=== PATIENT | female | born 1965 | race Caucasian/White ===

== ENCOUNTER 2016-12-14 12:46 | Emergency (ER) | payer MEDICAID ==
[2016-12-14 12:58] VITALS: BMI 25.9
[2016-12-14 13:01] VITALS: RESP 18; TEMP 97.6
[2016-12-14] MEDS ORDERED: Sodium Chloride 0.9% 1,000 ML IV ONE ×2 (13:57→15:09)
--- NOTE | 2016-12-14 14:02 | C.PDOC ---
History Of Present Illness 51 y/o female pmhx diabetes presents to the ED with complains of hyperglycemia. Pt states she was sitting and felt suddenly dizzy so she called EMS. Pt also reports headache and fever yesterday. Pt took medications today, has not eaten food. Denies vomiting, diarrhea, abdominal pain or any other complaints. Time Seen by Provider: 12/14/16 13:19 Chief Complaint (Nursing): High Blood Sugar History Per: Patient History/Exam Limitations: no limitations Onset/Duration Of Symptoms: Hrs Current Symptoms Are (Timing): Still Present Severity: Moderate Causative (Exacerbating) Factor(s): Missed A Meal Recent travel outside of the [place]: No Past Medical History Reviewed: Historical Data, Nursing Documentation, Vital Signs Vital Signs: Last Vital Signs Temp 97.6 F 12/14/16 12:54 Pulse 86 12/14/16 16:46 Resp 18 12/14/16 16:46 BP 121/80 12/14/16 16:46 Pulse Ox 96 12/14/16 16:47 - Medical History PMH: Asthma, Depression, Diabetes, HTN, Hypercholesterolemia Family History: States: Unknown Family Hx - Social History Hx Tobacco Use: No Hx Alcohol Use: No Hx Substance Use: No - Immunization History Hx Tetanus Toxoid Vaccination: Yes Hx Influenza Vaccination: Yes Hx Pneumococcal Vaccination: Yes Review Of Systems Except As Marked, All Systems Reviewed And Found Negative. Constitutional: Negative for: Fever Cardiovascular: Negative for: Chest Pain Respiratory: Negative for: Shortness of Breath Gastrointestinal: Negative for: Vomiting Neurological: Positive for: Headache, Dizziness. Negative for: Weakness, Numbness Physical Exam - Physical Exam Appears: Non-toxic, No Acute Distress Skin: Warm, Dry, No Rash Head: Atraumatic, Normacephalic Eye(s): bilateral: Normal Inspection, PERRL, EOMI Oral Mucosa: Moist Neck: Normal, Normal ROM, Supple Chest: Symmetrical Cardiovascular: Rhythm Regular, No Friction Rub, No Murmur Respiratory: Normal Breath Sounds, No Rales, No Rhonchi, No Wheezing Gastrointestinal/Abdominal: Normal Exam, Soft, No Tenderness Back: Normal Inspection, No CVA Tenderness Extremity: No Tenderness, No Swelling Extremity: Bilateral: Atraumatic Neurological/Psych: Oriented x3, Normal Speech, Normal Motor, Normal Sensation Gait: Steady ED Course And Treatment - Laboratory Results Result Diagrams: 12/14/16 14:17 12/14/16 14:17 O2 Sat by Pulse Oximetry: 96 (room air) Pulse Ox Interpretation: Normal Medical Decision Making Medical Decision Making: Plan: labs, UA, IV fluids On re-exam, the patient reports improvement of symptoms. Lungs are CTA, heart is RRR, abdomen is soft, non-tender and patient is tolerating PO well. Patient is ambulatory in the ED with steady gait. Follow up with the medical doctor within 1-2 days, Return if worsened. Disposition - Disposition Referrals: Matty Agarwal MD [Staff Provider] - Disposition: HOME/ ROUTINE Disposition Time: 16:45 Condition: GOOD Additional Instructions: Follow up with the medical doctor within 1-2 days without fail for medication review and possible change, Return if worsened. Instructions: Diabetic Hyperglycemia (ED) - Clinical Impression Clinical Impression: Hyperglycemia - PA / DESIGNER WRITER / Resident Statement MD/DO has reviewed & agrees with the documentation as recorded. - Scribe Statement The provider has reviewed the documentation as recorded by the Jes Dyer All medical record entries made by the Jes were at my direction and personally dictated by me. I have reviewed the chart and agree that the record accurately reflects my personal performance of the history, physical exam, medical decision making, and the department course for this patient. I have also personally directed, reviewed, and agree with the discharge instructions and disposition.
[2016-12-14 14:23] LABS: BASO % 0.4 % (0.0-2.0); EOS # 0.2 K/uL (0.0-0.7); EOS % 1.7 % (0.0-4.0); HEMATOCRIT 36.9 % (34.0-47.0); LYMPH # 2.8 K/uL (1.0-4.3); LYMPH % 30.3 % (20.0-40.0); MEAN CELL VOLUME 83.6 fL (81.0-99.0); MEAN CORPUSCULAR HEMOGLOBIN 28.4 pg (27.0-31.0); MEAN PLATELET VOLUME 10.7 fL (7.2-11.7); MONO # 0.6 K/uL (0.0-0.8); MONO % 6.6 % (0.0-10.0); RED CELL DISTRIBUTION WIDTH 13.7 % (11.5-14.5); WHITE BLOOD COUNT 9.1 K/uL (4.8-10.8)
[2016-12-14 14:27] LABS: RBC URINE < 1 /hpf (0-3); URINE BILIRUBIN NEGATIVE (NEGATIVE); URINE BLOOD NEGATIVE (NEGATIVE); URINE COLOR Yellow (YELLOW); URINE GLUCOSE (UA) 3+ mg/dL (Normal); URINE KETONE TRACE mg/dL (NEGATIVE); URINE LEUKOCYTE ESTERASE NEG Leu/uL (Negative); URINE PROTEIN NEGATIVE (NEGATIVE); URINE UROBILINOGEN NORMAL mg/dL (0.2-1.0); WBC URINE < 1 /hpf (0-5)
[2016-12-14 14:37] LABS: CHLORIDE 93 mmol/L (98-107)
[2016-12-14 14:38] LABS: POTASSIUM 4.4 mmol/L (3.6-5.2); SODIUM 132 mmol/L (132-148)
[2016-12-14 14:40] LABS: ALB/GLOB RATIO 1.1 (1.0-2.1); AST/SGOT 27 U/L (14-36); BILIRUBIN,TOTAL 0.6 mg/dL (0.2-1.3); CARBON DIOXIDE 25 mmol/L (22-30); GFR AFRICAN-AMERICAN > 60; TOTAL PROTEIN 8.4 g/dL (6.3-8.3)
[2016-12-14 14:41] LABS: ALKALINE PHOSPHATASE 71 U/L (38-126); ALT/SGPT 21 U/L (9-52); BLOOD UREA NITROGEN 16 mg/dL (7-17); CALCIUM 9.9 mg/dl (8.6-10.4); GLUCOSE,RANDOM 340 mg/dL (65-105)
[2016-12-14] MEDS ORDERED: Sodium Chloride 0.9% 1,000 ML ONE (15:13)
[2016-12-14 16:47] VITALS: BP 121/80; PULSE 86; O2SAT 96
== END 2016-12-14 17:07 | disposition home or self-care (01) ==
LOC: C.ER 12:46
DX: E11.65 Type 2 diabetes mellitus with hyperglycemia (principal)
CPT/HCPCS: 80053; 81001; 82009; 82948; 85025; 96360; 96361; 99284; J7040

== ENCOUNTER 2019-01-01 17:19 | Emergency (ER) | payer MEDICAID ==
[2019-01-01 17:19] VITALS: BMI 25.9
[2019-01-01 17:36] VITALS: O2SAT 98
[2019-01-01] MEDS ORDERED: Sodium Chloride 0.9% 1,000 ML IV ONE ×2 (17:47→17:48)
--- NOTE | 2019-01-01 17:51 | C.PDOC ---
History Of Present Illness PGY-[address] Morton/Samara Patient is 53 year old female with pmhx of DM, comes to the ED from PMD office for high glucose reading. Patient states she was feeling dizziness in the afternoon. Patient is not compliant with accuchecks and insulin at home, patient takes metformin 1000mg BID. PAtient denies any falls, LOC, head or body trauma, denies fever, chills, chest pain, shortness of breath, n/v/d/c. Admits to increase urination, admits to drink large amounts of water daily. no urinary symptoms reported. Chief Complaint (Nursing): High Blood Sugar History Per: Patient History/Exam Limitations: no limitations Onset/Duration Of Symptoms: Hrs Current Symptoms Are (Timing): Better Causative (Exacerbating) Factor(s): Missed Taking Medication. denies: Recent Steroids, Recent Change In Diet Associated Infectious Symptoms: Urinary Frequency (increased ). denies: Dysuria, Nausea, Vomiting, Diarrhea Treatment Prior To Provider Evaluation: Accucheck Past Medical History Vital Signs: Last Vital Signs Temp 97.5 F L 01/01/19 17:30 Pulse 111 H 01/01/19 17:30 Resp 20 01/01/19 17:30 BP 137/94 H 01/01/19 17:30 Pulse Ox 98 01/01/19 17:30 Primary Care Provider: Matty Agarwal - Medical History PMH: Asthma, Depression, Diabetes, HTN, Hypercholesterolemia Denies: Hepatitis, HIV, Seizures, Sexually Transmitted Disease Surgical History: No Surg Hx Family History: States: Unknown Family Hx - Social History Hx Tobacco Use: No Hx Alcohol Use: No Hx Substance Use: No - Immunization History Hx Tetanus Toxoid Vaccination: No Hx Influenza Vaccination: No Hx Pneumococcal Vaccination: No Review Of Systems Constitutional: Negative for: Fever, Chills, Weakness Cardiovascular: Positive for: Light Headedness. Negative for: Chest Pain Respiratory: Negative for: Shortness of Breath Gastrointestinal: Negative for: Nausea, Vomiting, Abdominal Pain, Diarrhea, Constipation Genitourinary: Positive for: Frequency. Negative for: Dysuria Neurological: Positive for: Dizziness. Negative for: Weakness, Numbness Psych: Negative for: Anxiety, Depression Physical Exam - Physical Exam Appears: Non-toxic, No Acute Distress Skin: Normal Color, Warm Head: Atraumatic, Normacephalic Eye(s): bilateral: Normal Inspection, EOMI Oral Mucosa: Moist Neck: Normal, Normal ROM Cardiovascular: Rhythm Regular Respiratory: Normal Breath Sounds, No Rales, No Rhonchi, No Wheezing Gastrointestinal/Abdominal: Normal Exam, Bowel Sounds, Soft Extremity: Normal ROM, No Tenderness, No Swelling Neurological/Psych: Oriented x3, Normal Speech, Normal Cognition, Normal Cranial Nerves, Normal Motor, Normal Sensation ED Course And Treatment - Laboratory Results Result Diagrams: 01/01/19 18:26 01/01/19 18:26 O2 Sat by Pulse Oximetry: 98 Medical Decision Making Medical Decision Making: Ordered CBC, CMP, Hemoglobin A1C 2L NS Insulin regular 6 Units x 1 accuchecks after 1L NS -[address] Pascual at 19:00 POC glucose after insulin and 2nd bolus of NS - 247 Patient stable to d/c. Patient is to be follow up with PMD Dr Vance, patient to continue her home meds and to check her glucose constantly and take insulin as indicated. Patient to return to ER if symptoms recur or worsen. Patient understand plan. Plan d/w Dr Morton/Samara Mack, PGY-1 Disposition - Disposition Referrals: Matty Agarwal MD [Staff Provider] - Disposition: HOME/ ROUTINE Disposition Time: 20:10 Condition: IMPROVED Additional Instructions: LAKSHMI TANG, thank you for letting us take care of you today. Your provider was Carito Morton MD and you were treated for HYPERGLYCEMIA. The emergency medical care you received today was directed at your acute symptoms. Return to the Emergency Department if your symptoms worsen, do not improve, or if you have any other problems. Please contact your doctor or call one of the physicians/clinics you have been referred to that are listed on the Patient Visit Information form that is incl uded in your discharge packet. Bring any paperwork you were given at discharge with you along with any medications you are taking to your follow up visit. Our treatment cannot replace ongoing medical care by a primary care provider outside of the emergency department. Thank you for allowing the [facility] team to be part of your care today. Instructions: Hyperglycemia, Adult, Blood Glucose Monitoring, Diabetes and Diet, How to Use an Insulin Pen Forms: [employer] ([place]) - Clinical Impression Clinical Impression: Hyperglycemia
[2019-01-01 18:32] LABS: BASO % 0.5 % (0.0-2.0); EOS # 0.1 K/uL (0.0-0.7); EOS % 1.6 % (0.0-4.0); LYMPH # 2.9 K/uL (1.0-4.3); LYMPH % 40.6 % (20.0-40.0); MEAN CORPUSCULAR HEMOGLOBIN 30.6 pg (27.0-31.0); MEAN CORPUSCULAR HGB CONC 34.1 g/dL (33.0-37.0); MEAN PLATELET VOLUME 10.4 fL (7.2-11.7); MONO # 0.5 K/uL (0.0-0.8); MONO % 7.7 % (0.0-10.0); NEUT # 3.6 K/uL (1.8-7.0); NEUT % 49.6 % (50.0-75.0); NRBC % 0.1 % (0.0-2.0); RBC 4.23 Mil/uL (3.80-5.20); RED CELL DISTRIBUTION WIDTH 14.3 % (11.5-14.5); WHITE BLOOD COUNT 7.2 K/uL (4.8-10.8)
[2019-01-01 18:34] LABS: MEAN CELL VOLUME 89.8 fL (81.0-99.0)
[2019-01-01] MEDS ORDERED: Sodium Chloride 0.9% 2,000 ML ONE (18:43)
[2019-01-01 18:52] LABS: ALB/GLOB RATIO 1.1 (1.0-2.1); ALBUMIN 4.2 g/dL (3.5-5.0); ALT/SGPT 31 U/L (9-52); AST/SGOT 35 U/L (14-36); BLOOD UREA NITROGEN 17 mg/dL (7-17); CALCIUM 9.8 mg/dl (8.6-10.4); GFR NON-AFRICAN AMERICAN > 60
[2019-01-01] MEDS ORDERED: (Novolin R) Insulin Human Regular 100 units/ml vial IVP ONE (19:00)
[2019-01-01] MEDS ORDERED: (Novolin R) Insulin Human Regular 100 units/ml vial ONE (19:26)
[2019-01-01 19:53] VITALS: PULSE 90
[2019-01-01 20:11] VITALS: BP 144/89; RESP 18; TEMP 97.8
== END 2019-01-01 20:20 | disposition home or self-care (01) ==
LOC: C.ER 17:19
DX: E11.65 Type 2 diabetes mellitus with hyperglycemia (principal); Z79.4 Long term (current) use of insulin; I10 Essential (primary) hypertension; E78.00 Pure hypercholesterolemia, unspecified
CPT/HCPCS: 80053; 82948; 83036; 85025; 96361; 96374; 99285; J7030